=== PATIENT | male | born 1980 | race Caucasian/White ===

== ENCOUNTER 2017-01-03 21:13 | Emergency (ER) | payer MEDICAID ==
[2017-01-03 21:14] VITALS: BMI 39.1
[2017-01-03 21:44] VITALS: TEMP 98.4
--- NOTE | 2017-01-03 22:24 | C.PDOC ---
History Of Present Illness <Savana Ruby - Last Filed: 01/03/17 22:51> <Nichelle Leonardo - Last Filed: 01/04/17 00:40> A 36 year old male presents to the ED c/o cough for 2 days. Patient notes cough has occasional blood tinged sputum with pain and SOB with deep breath and cough. Patient notes pleuritic chest pain with SOB when coughing but denies sore throat, nasal symptoms, fever, chills, calf tenderness, nausea, vomiting, pedal edema, LOC, or any other complaints. pt recently flew to [facility] and back to [place]- 2 weeks ago. . Pt also sts for last four years he has episodes of difficulty breathing and sob wiht no workup. (Savana Ruby) History Per: Patient History/Exam Limitations: no limitations Onset/Duration Of Symptoms: Days Current Symptoms Are (Timing): Still Present Associated Symptoms: Cough, Sputum (Blood tinged). denies: Fever, Chills, Sore Throat Severity: Mild <Savana Ruby - Last Filed: 01/03/17 22:51> <Nichelle Leonardo - Last Filed: 01/04/17 00:40> Time Seen by Provider: 01/03/17 21:48 Chief Complaint (Nursing): Cough, Cold, Congestion Past Medical History Reviewed: Historical Data, Nursing Documentation, Vital Signs - Medical History PMH: Denies: Chronic Kidney Disease Family History: States: Unknown Family Hx - Social History Hx Tobacco Use: No Hx Alcohol Use: No Hx Substance Use: No - Immunization History Hx Tetanus Toxoid Vaccination: No Hx Influenza Vaccination: No Hx Pneumococcal Vaccination: No <Savana Ruby - Last Filed: 01/03/17 22:51> Review Of Systems Except As Marked, All Systems Reviewed And Found Negative. Constitutional: Negative for: Fever, Chills ENT: Negative for: Throat Pain Cardiovascular: Positive for: Chest Pain (Pleuritc) Respiratory: Positive for: Cough, Shortness of Breath Gastrointestinal: Negative for: Nausea, Vomiting Musculoskeletal: Negative for: Other (Calf tenderness) Neurological: Negative for: Other (LOC) <Savana Ruby - Last Filed: 01/03/17 22:51> Physical Exam - Physical Exam Appears: Non-toxic, No Acute Distress Skin: Warm, Dry Head: Atraumatic, Normacephalic Eye(s): bilateral: Normal Inspection Neck: Normal ROM Chest: Symmetrical, No Deformity, No Tenderness Cardiovascular: Rhythm Regular, No Murmur Respiratory: Normal Breath Sounds, No Rales, No Rhonchi, No Wheezing Gastrointestinal/Abdominal: Soft, No Tenderness, Distention, No Guarding, No Rebound Extremity: Normal ROM, No Tenderness, No Pedal Edema, No Calf Tenderness Neurological/Psych: Oriented x3, Normal Speech, Normal Cognition <Savana Ruby - Last Filed: 01/03/17 22:51> ED Course And Treatment O2 Sat by Pulse Oximetry: 98 (Room air) Pulse Ox Interpretation: Normal <Savana Ruby - Last Filed: 01/03/17 22:51> - Laboratory Results Result Diagrams: 01/03/17 23:18 01/03/17 23:18 Lab Interpretation: No Acute Changes ECG: Interpreted By Nv ECG Rhythm: Sinus Rhythm ECG Interpretation: No Acute Changes Pulse Ox Interpretation: Normal - Radiology CXR: Interpreted by Me CXR Interpretation: Yes: No Acute Disease - CT Scan/US Angio chest PE Protocol Other Rad Studies (CT/US): Read By Radiologist, Radiology Report Reviewed CT/US Interpretation: Few calcified granulomas and calcified hilar lymph nodes. No definite pulmonary evidence for PE. Reevaluation Time: 00:36 Reassessment Condition: Unchanged <Nichelle Leonardo - Last Filed: 01/04/17 00:40> Medical Decision Making <Savana Ruby - Last Filed: 01/03/17 22:51> <Nichelle Leonardo - Last Filed: 01/04/17 00:40> Medical Decision Making: Plans: -EKG -CXR -Motrin -Reassess and disposition [id number] - given pt's recent flight history, cough/cp and sob, pt has risk factors for pe ; will do labs and get ct angio chest to r/o pe. (Savana Ruby) Patient denies any possible toxic or chemical exposures. 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 He has been seen by his PMD for same. (Nichelle Leonardo) Disposition <Savana Ruby - Last Filed: 01/03/17 22:51> Counseled Patient/Family Regarding: Studies Performed, Need For Followup - Disposition Disposition Time: 00:38 <Nichelle Leonardo - Last Filed: 01/04/17 00:40> - Disposition Referrals: Castro Gan MD [Non-Staff] - Disposition: HOME/ ROUTINE Condition: STABLE Instructions: Pleurisy (ED) - Clinical Impression Clinical Impression: Pleuritic chest pain - Scribe Statement The provider has reviewed the documentation as recorded by the Scribe <Savana Ruby - Last Filed: 01/03/17 22:51> <Nichelle Leonardo - Last Filed: 01/04/17 00:40> - Scribe Statement [address] All medical record entries made by the Scribe were at my direction and personally dictated by me. I have reviewed the chart and agree that the record accurately reflects my personal performance of the history, physical exam, medical decision making, and the department course for this patient. I have also personally directed, reviewed, and agree with the discharge instructions and disposition. (Savana Ruby)
[2017-01-03 23:21] LABS: BASO # 0.1 K/uL (0.0-0.2); BASO % 1.1 % (0.0-2.0); EOS # 0.2 K/uL (0.0-0.7); EOS % 2.7 % (0.0-4.0); HEMATOCRIT 47.1 % (35.0-51.0); LYMPH # 2.9 K/uL (1.0-4.3); LYMPH % 38.8 % (20.0-40.0); MEAN CORPUSCULAR HEMOGLOBIN 29.5 pg (27.0-31.0); MEAN CORPUSCULAR HGB CONC 34.2 g/dL (33.0-37.0); MEAN PLATELET VOLUME 9.1 fL (7.2-11.7); MONO # 0.7 K/uL (0.0-0.8); MONO % 9.5 % (0.0-10.0); NRBC % 0.1 % (0.0-2.0); RED CELL DISTRIBUTION WIDTH 12.5 % (11.5-14.5); WHITE BLOOD COUNT 7.4 K/uL (4.8-10.8)
[2017-01-03 23:28] LABS: CHLORIDE 101 mmol/L (98-107); POTASSIUM 4.2 mmol/L (3.6-5.2); SODIUM 140 mmol/L (132-148)
[2017-01-03 23:30] LABS: BILIRUBIN,TOTAL 0.8 mg/dL (0.2-1.3); GFR AFRICAN-AMERICAN > 60
[2017-01-03 23:31] LABS: ALB/GLOB RATIO 1.3 (1.0-2.1); ALKALINE PHOSPHATASE 65 U/L (38-126); ALT/SGPT 109 U/L (21-72); AST/SGOT 54 U/L (17-59); BLOOD UREA NITROGEN 15 mg/dL (9-20); CALCIUM 9.1 mg/dl (8.6-10.4); CARBON DIOXIDE 29 mmol/L (22-30); GLUCOSE,RANDOM 103 mg/dL (75-110); TOTAL PROTEIN 7.4 g/dL (6.3-8.3)
[2017-01-03] MEDS ORDERED: Iodixanol 320 MG/ML 100 ML BOTTLE IV ONE (23:44)
--- NOTE | 2017-01-04 00:26 | CT ---
EXAM: CT Angiography Chest With Intravenous Contrast CLINICAL HISTORY: 36 years old, male; Pain; Chest pain TECHNIQUE: Axial computed tomographic angiography images of the chest with intravenous contrast using pulmonary embolism protocol. This CT exam was performed using one or more of the following dose reduction techniques: automated exposure control, adjustment of the mA and/or kV according to patient size, and/or use of iterative reconstruction technique. MIP reconstructed images were created and reviewed. Coronal and sagittal reformatted images were created and reviewed. CONTRAST: 100 mL of [id number] administered intravenously. COMPARISON: No relevant prior studies available. FINDINGS: Limitations: Motion artifact - mild. Pulmonary arteries: No definite pulmonary embolism. Aorta: No aneurysm. No dissection. Lungs: No consolidation. Few calcified granulomas. Pleural space: No significant effusion. No pneumothorax. Heart: No cardiomegaly. No significant pericardial effusion. Bones/joints: No acute fracture. No dislocation. Soft tissues: Unremarkable. Lymph nodes: Calcified hilar lymph nodes. IMPRESSION: 1. No definite CT evidence of pulmonary embolism. 2. Incidental/non-acute findings are described above.
[2017-01-04 01:25] VITALS: BP 143/81; PULSE 70; RESP 15; O2SAT 100
--- NOTE | 2017-01-04 08:18 | RAD ---
HISTORY: cough sob COMPARISON: CTA chest performed subsequently on 01/04/17 TECHNIQUE: Chest PA and lateral FINDINGS: Examination limited by habitus. LUNGS: No focal consolidation. Please note that chest x-ray has limited sensitivity for the detection of pulmonary masses. PLEURA: No significant pleural effusion identified. No definite pneumothorax . CARDIOVASCULAR: The cardiomediastinal silhouette appears within normal limits of size. OSSEOUS STRUCTURES: No acute osseous abnormality identified. VISUALIZED UPPER ABDOMEN: Unremarkable. OTHER FINDINGS: None. IMPRESSION: No focal consolidation, significant pleural effusion, or definite pneumothorax identified.
--- NOTE | 2017-01-10 09:11 | CARD ---
APPROVED REPORT EKG Measurement Heart [id number] CT [id number] <Conclusion> Normal sinus rhythm with sinus arrhythmia Possible Inferior infarct, age undetermined Abnormal ECG
== END 2017-01-04 01:23 | disposition home or self-care (01) ==
LOC: C.ER 21:13
DX: R07.81 Pleurodynia (principal)
CPT/HCPCS: 71020; 71275; 80053; 85025; 99283; Q9967